=== PATIENT | female | born 1955 | race Caucasian/White ===

== ENCOUNTER → 2016-12-10 | Outpatient (CLI) | payer BC ==
--- NOTE | 2016-12-12 09:05 | MM ---
Reason for exam: screening (asymptomatic). Last mammogram was performed 13 years and 3 months ago. History: Patient is postmenopausal. Physical Findings: A clinical breast exam by your physician is recommended on an annual basis and results should be correlated with mammographic findings. MG Screening Mammo w CAD Bilateral CC and MLO view(s) were taken. Prior study comparison: December 07, 2015, mammogram, performed at [facility]. There are scattered fibroglandular densities. No significant changes when compared with prior studies. ASSESSMENT: Negative, BI-RAD 1 RECOMMENDATION: Routine screening mammogram of both breasts in 1 year.
== END | disposition home or self-care (01) ==
LOC: RADMAMWWP 09:36
PROVIDERS: ATTEND Family Medicine
DX: Z12.31 Encounter for screening mammogram for malignant neoplasm of breast (principal)

== ENCOUNTER → 2016-12-14 | Outpatient (CLI) | payer BC ==
[2016-12-14 11:59] LABS: Basophils # (A) 0.1 k/uL (0-0.2); Basophils % (A) 1 %; CH 30.1; Eosinophils # (A) 0.1 k/uL (0-0.7); Eosinophils % (A) 2 %; HCT 37.5 % (34.0-46.0); HDW 2.58; Luc # (Auto) 0.14; Luc % (Auto) 2; Lymphocytes # (A) 2.2 k/uL (1.0-4.8); Lymphocytes % (A) 36 %; MCH 30.9 pg (25.0-35.0); MCHC 34.8 g/dL (31.0-37.0); MCV 88.7 fL (80.0-100.0); Mean Platelet Volume 7.7; Monocytes # (A) 0.4 k/uL (0-1.0); Monocytes % (A) 6 %; Neutrophils # (A) 3.3 k/uL (1.3-7.7); Neutrophils % (A) 53 %; RBC 4.23 m/uL (3.80-5.40); RDW 12.5 % (11.5-15.5); WBC 6.2 k/uL (3.8-10.6); WBC (Perox) 6.62
== END ==
LOC: LABWHC1 11:40
PROVIDERS: ATTEND Family Medicine
DX: I10 Essential (primary) hypertension (principal); E78.5 Hyperlipidemia, unspecified
CPT/HCPCS: 36415; 85025

== ENCOUNTER → 2018-01-14 | Outpatient (CLI) | payer BC ==
--- NOTE | 2018-01-15 13:47 | MM ---
Reason for exam: screening (asymptomatic). Last mammogram was performed 1 year and 1 month ago. History: Patient is postmenopausal. Physical Findings: A clinical breast exam by your physician is recommended on an annual basis and results should be correlated with mammographic findings. MG 3D Screening Mammo W/Cad Bilateral CC and MLO view(s) were taken. Prior study comparison: December 10, 2016, bilateral MG screening mammo w CAD. December 07, 2015, mammogram, performed at [facility]. There are scattered fibroglandular densities. Developing 15mm asymmetry left breast middle depth MLO view (63/78) medial aspect CC view (53/73). ASSESSMENT: Incomplete: need additional imaging evaluation, BI-RAD 0 RECOMMENDATION: Special view mammogram of the left breast. If lesion persists on supplemental views, image directed ultrasound is recommended. [facility] will attempt to contact patient to return for supplemental views and ultrasound if indicated.
== END | disposition home or self-care (01) ==
LOC: RADMAMWWP 10:39
PROVIDERS: ATTEND Family Medicine
DX: Z12.31 Encounter for screening mammogram for malignant neoplasm of breast (principal)
CPT/HCPCS: 77063; 77067

== ENCOUNTER → 2018-01-26 | Outpatient (CLI) | payer BC ==
--- NOTE | 2018-01-27 07:52 | MM ---
Reason for exam: additional evaluation requested from abnormal screening. Last mammogram was performed less than 1 month ago. History: Patient is postmenopausal. Physical Findings: Nurse did not find any significant physical abnormalities on exam. MG Work Up Mamm w CAD LT Spot compression CC, spot compression MLO, and CCRL view(s) were taken of the left breast. Prior study comparison: January 14, 2018, bilateral MG 3d screening mammo w/cad. December 10, 2016, bilateral MG screening mammo w CAD. Nodular density persists 8cm from nipple at 9 o'clock. These results were verbally communicated with the patient and result sheet given to the patient on 01/26/18. ASSESSMENT: Incomplete: need additional imaging evaluation, BI-RAD 0 RECOMMENDATION: Ultrasound of the left breast.
--- NOTE | 2018-01-27 07:53 | USB ---
Reason for exam: additional evaluation requested from abnormal screening. History: Patient is postmenopausal. US Breast Workup Limited LT Left limited breast ultrasound including focal area of concern, retroareolar and axilla demonstrates a 5 x 4 x 6mm oval, mixed, hypoechoic lesion at 9 o'clock and a 13 x 5 x 9mm lobular, mixed, hypoechoic lesion at 9 o'clock. These results were verbally communicated with the patient and result sheet given to the patient on 01/26/18. ASSESSMENT: Probably benign, BI-RAD 3 RECOMMENDATION: Ultrasound of the left breast in 6 months.
== END | disposition home or self-care (01) ==
LOC: RADMAMWWP 14:49
PROVIDERS: ATTEND Family Medicine
DX: R92.8 Other abnormal and inconclusive findings on diagnostic imaging of breast (principal)
CPT/HCPCS: 77065

== ENCOUNTER → 2018-09-02 | Outpatient (CLI) | payer BC ==
[2018-09-02 12:34] LABS: Basophils # (A) 0.1 k/uL (0-0.2); Basophils % (A) 1 %; Eosinophils # (A) 0.2 k/uL (0-0.7); Eosinophils % (A) 2 %; HCT 40.5 % (34.0-46.0); HGB 13.5 gm/dL (11.4-16.0); Lymphocytes # (A) 2.7 k/uL (1.0-4.8); Lymphocytes % (A) 34 %; MCH 30.4 pg (25.0-35.0); MCHC 33.2 g/dL (31.0-37.0); MCV 91.6 fL (80.0-100.0); Mean Platelet Volume 7.2; Monocytes # (A) 0.3 k/uL (0-1.0); Monocytes % (A) 4 %; Neutrophils # (A) 4.5 k/uL (1.3-7.7); Neutrophils % (A) 58 %; Platelet Count 212 k/uL (150-450); RBC 4.42 m/uL (3.80-5.40); RDW 12.7 % (11.5-15.5); WBC 7.9 k/uL (3.8-10.6)
[2018-09-02 20:03] LABS: Albumin 4.4 g/dL (3.80-4.90); Albumin/Globulin Ratio 1.63 (1.60-3.17); Anion Gap 10.1 mmol/L (4.00-12.00); Calcium 9.3 mg/dL (8.7-10.3); Carbon Dioxide 21.9 mmol/L (21.6-31.8); Globulin 2.7 g/dL (1.6-3.3); LDL Cholesterol,Calculated 75.4 mg/dL (0.0-131.0); Potassium 4.2 mmol/L (3.5-5.5); Total Bilirubin 0.7 mg/dL (0.3-1.2); Total Protein 7.1 g/dL (6.2-8.2); VLDL Calculation 28.6 mg/dL (5.00-40.00)
== END | disposition home or self-care (01) ==
LOC: LABWHC1 12:02
PROVIDERS: ATTEND Family Medicine
DX: E78.5 Hyperlipidemia, unspecified (principal); I10 Essential (primary) hypertension; D64.9 Anemia, unspecified
CPT/HCPCS: 36415; 80053; 80061; 85025

== ENCOUNTER 2021-09-07 14:40 | Observation (INO) | payer BC, MEDICARE ==
--- NOTE | 2021-09-07 15:35 | CT ---
EXAMINATION TYPE: CT abdomen pelvis wo con DATE OF EXAM: 09/07/2021 COMPARISON: None HISTORY: Right sided abdominal pain and flank pain. CT DLP: 602.8 mGycm Automated exposure control for dose reduction was used. TECHNIQUE: Helical acquisition of images was performed from the lung bases through the pelvis. FINDINGS: The lung bases are clear and there is no infiltrate or effusion.. There are multiple large gallstones and there is pericholecystic fluid and mild gallbladder distentio n. The findings suggest acute cholecystitis. There is no organomegaly involving the liver, pancreas, spleen or adrenal glands. There is mild prominence of the renal collecting systems bilaterally but no definite hydronephrosis. There are no renal or ureteral calcifications. 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 Caliber the abdominal aorta is normal and there is no retroperitoneal adenopathy or hemorrhage. The bowel loops are normal in caliber and there is no evidence of obstruction. There is no free intra peritoneal air or fluid. There are no inflammatory changes within the mesentery. There is no pelvic mass or adenopathy. 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 There is a left hip prosthesis otherwise the osseous structures are intact. IMPRESSION: Cholelithiasis with pericholecystic fluid and mild gallbladder distention. The findings suggest prese nce of acute cholecystitis. Clinical correlation is recommended.
[2021-09-07] MEDS ORDERED: SODIUM CHLORIDE 0.9% 1,000 ML IV STA (17:32)
[2021-09-07] MEDS ORDERED: KETOROLAC 15 MG/ML 1 ML VIAL IVP STA (17:42)
[2021-09-07] MEDS ORDERED: PIPERACILLIN-TAZOBACTAM 3.375 GM in SODIUM CHLORIDE 0.9% 100 ML IVPB STA (17:47)
--- NOTE | 2021-09-07 17:47 | ED ---
General Adult HPI - General Chief complaint: Abdominal Pain Stated complaint: Abd Pain/Sick Time Seen by Provider: 09/07/21 17:31 Source: patient Mode of arrival: ambulatory Limitations: no limitations - History of Present Illness Initial comments: Dictation was produced using [employer] dictation software. please excuse any grammatical, word or spelling errors. Chief Complaint: 66-year-old feel presents emergency Department with right upper quadrant abdominal pain History of Present Illness: 66-year-old female she denies any significant past medical history. She states that she has a history of abdominal surgery. She woke up today and started having severe right-sided upper quadrant abdominal pain. The last several months she's had episodes of colicky right upper quadrant abdominal pain. She has not been formally diagnosed with any gallbladder disease. She does have fever and chills. she does have nausea. The ROS documented in this emergency department record has been reviewed and confirmed by me. Those systems with pertinent positive or negative responses have been documented in the HPI. All other systems are other negative and/or noncontributory. PHYSICAL EXAM: General Impression: Alert and oriented x3, not in acute distress HEENT: Normocephalic atraumatic, extra-ocular movements intact, pupils equal and reactive to light bilaterally, mucous membranes moist. Cardiovascular: Heart regular rate and rhythm Chest: Able to complete full sentences, no retractions, no tachypnea Abdomen: abdomen soft, tenderness to the right abdomen, positive Lester sign, non-distended, no organomegaly Musculoskeletal: Pulses present and equal in all extremities, no peripheral edema Motor: no focal deficits noted Neurological: CN II-XII grossly intact, no focal motor or sensory deficits noted Skin: Intact with no visualized rashes Psych: Normal affect and mood ED course: 66-year-old female presents to the emergency department for right upper quadrant abdominal pain and GI symptoms acutely since this morning. Tr [facility] nurse ordered computed tomography scan of the abdomen and pelvis that showed findings suspicious for acute cholecystitis. Clinically her symptoms suggest acute cholecystitis. Vital signs upon arrival are within acceptable limits. Laboratory evaluation obtained. Leukocytosis of 15.7. Rest of CBC metabolic panel is unremarkable. Case discussed with on-call surgeon Dr. Kim who is agreeable with admission. He request the patient be started antibiotics and be made nothing by mouth. Patient has multiple antibiotic ALLERGIES however out of her reactions are listed as anaphylaxis and just as rash. Patient be monitored for possible ALLERGIC reaction. EKG interpretation: Ventricular rate 66, sinus rhythm,. Interval 186, QS 93, QTC 427. No NJ prolongation, no QTC prolongation, no ST or T-wave changes noted. Overall, this EKG is unremarkable - Related Data Home Medications Medication Instructions Recorded Confirmed Atorvastatin [Lipitor] 40 mg PO HS 09/07/21 09/07/21 lisinopriL 30 mg PO HS 09/07/21 09/07/21 Allergies Allergy/AdvReac Type Severity Reaction Status Date / Time amoxicillin Allergy Rash/Hives Verified 09/07/21 18:33 azithromycin Allergy Rash/Hives Verified 09/07/21 18:33 cefpodoxime [From Vantin] Allergy Rash/Hives Verified 09/07/21 18:33 clarithromycin [From Biaxin] Allergy Rash/Hives Verified 09/07/21 18:33 levofloxacin [From Levaquin] Allergy Rash/Hives Verified 09/07/21 18:33 moxifloxacin [From Avelox] Allergy Rash/Hives Verified 09/07/21 18:33 Penicillins Allergy Rash/Hives Verified 09/07/21 18:33 on entire body meperidine [From Demerol] AdvReac Nausea & Verified 09/07/21 18:33 Vomiting & Diarrhea Review of Systems ROS Statement: Those systems with pertinent positive or pertinent negative responses have been documented in the HPI. ROS Other: All systems not noted in ROS Statement are negative. Past Medical History Past Medical History: No Reported History History of Any Multi-Drug Resistant Organisms: None Reported Past Surgical History: Joint Replacement, Orthopedic Surgery Past Psychological History: No Psychological Hx Reported Smoking Status: Never smoker Past Alcohol Use History: None Reported Past Drug Use History: None Reported General Exam Limitations: no limitations Course Vital Signs 09/07/21 09/07/21 15:04 18:20 Temperature 99.0 F Pulse Rate 82 65 Respiratory 18 18 Rate Blood Pressure 199/78 173/72 O2 Sat by Pulse 98 96 Oximetry Medical Decision Making - Lab Data Result diagrams: 09/07/21 18:19 09/07/21 18:19 Disposition Clinical Impression: Acute cholecystitis Disposition: ADMITTED IP TO THIS HOSP Condition: Serious Decision Time: 18:49
[2021-09-07] MEDS ORDERED: NALOXONE 0.4 MG/ML 1 ML VIAL IV PRN (17:56)
[2021-09-07] MEDS ORDERED: ACETAMINOPHEN TAB 325 MG TAB PO PRN (17:56)
[2021-09-07] MEDS ORDERED: metroNIDAZOLE-NS PMX 500 MG in SALINE 1 100ML.BAG IVPB STA (18:14)
[2021-09-07] MEDS ORDERED: cefTRIAXone IN SWFI 1,000 MG/10 ML SYRINGE IVP STA ×2 (18:14→18:41)
[2021-09-07 18:29] LABS: Basophils # (A) 0.1 k/uL (0-0.2); Basophils % (A) 1 %; Eosinophils % (A) 0 %; HCT 41.8 % (34.0-46.0); HGB 13.9 gm/dL (11.4-16.0); Lymphocytes % (A) 13 %; MCH 30.5 pg (25.0-35.0); MCHC 33.3 g/dL (31.0-37.0); MCV 91.5 fL (80.0-100.0); Mean Platelet Volume 7.9; Monocytes % (A) 6 %; Neutrophils # (A) 12.3 k/uL (1.3-7.7); Neutrophils % (A) 79 %; Platelet Count 223 k/uL (150-450); RBC 4.57 m/uL (3.80-5.40); RDW 12.6 % (11.5-15.5); WBC 15.7 k/uL (3.8-10.6)
[2021-09-07 18:40] LABS: ALT 22 U/L (4-34); AST 27 U/L (14-36); African American GFR (CKD) >90 (>60 ml/min/1.73 sqM); Albumin 4.6 g/dL (3.5-5.0); Alkaline Phosphatase 92 U/L (38-126); Anion Gap 10 mmol/L; Bilirubin, Delta 0.1 mg/dL (0.0-0.2); Bilirubin,Unconjugated 0.9 mg/dL (0.0-1.1); Blood Urea Nitrogen 10 mg/dL (7-17); Calcium 9.4 mg/dL (8.4-10.2); Carbon Dioxide 28 mmol/L (22-30); Chloride 104 mmol/L (98-107); Glucose 118 mg/dL (74-99); Lipase 80 U/L (23-300); Non-African American GFR(CKD) >90 (>60 ml/min/1.73 sqM); Potassium 3.1 mmol/L (3.5-5.1); Sodium 142 mmol/L (137-145); Total Protein 7.5 g/dL (6.3-8.2)
[2021-09-07] MEDS ORDERED: ONDANSETRON 4 MG/2 ML VIAL IVP STA (19:32)
[2021-09-07] MEDS: SODIUM CHLORIDE 0.9% 1,000 ML IV SCH (19:39)
[2021-09-08] MEDS: KETOROLAC 15 MG/ML 1 ML VIAL IVP PRN ×2 (03:29→11:10)
[2021-09-08] MEDS: SODIUM CHLORIDE 0.9% 1,000 ML IV SCH ×2 (06:07→07:21)
[2021-09-08] MEDS ORDERED: HYDROmorphone 1 MG/ML 1 ML SYRINGE IVP PRN (11:13)
--- NOTE | 2021-09-08 12:27 | P.GSHP ---
History of Present Illness H&P Date: 09/08/21 Chief Complaint: Right upper quadrant pain This a 66-year-old female who was admitted hospital with right quadrant pain. Patient was worked up emergency room found evidence of cholelithiasis cholecystitis. Past Medical History Past Medical History: No Reported History History of Any Multi-Drug Resistant Organisms: None Reported Past Surgical History: Joint Replacement, Orthopedic Surgery Past Psychological History: No Psychological Hx Reported Smoking Status: Unknown if ever smoked Past Alcohol Use History: None Reported Past Drug Use History: None Reported Medications and Allergies Home Medications Medication Instructions Recorded Confirmed Type Atorvastatin [Lipitor] 40 mg PO HS 09/07/21 09/07/21 History lisinopriL 30 mg PO HS 09/07/21 09/07/21 History Allergies Allergy/AdvReac Type Severity Reaction Status Date / Time amoxicillin Allergy Rash/Hives Verified 09/07/21 18:33 azithromycin Allergy Rash/Hives Verified 09/07/21 18:33 cefpodoxime [From Vantin] Allergy Rash/Hives Verified 09/07/21 18:33 clarithromycin [From Biaxin] Allergy Rash/Hives Verified 09/07/21 18:33 levofloxacin [From Levaquin] Allergy Rash/Hives Verified 09/07/21 18:33 moxifloxacin [From Avelox] Allergy Rash/Hives Verified 09/07/21 18:33 Penicillins Allergy Rash/Hives Verified 09/07/21 18:33 on entire body meperidine [From Demerol] AdvReac Nausea & Verified 09/07/21 18:33 Vomiting & Diarrhea Surgical - Exam Vital Signs Temp Pulse Resp BP Pulse Ox 99.0 F 82 18 199/78 98 09/07/21 15:04 09/07/21 15:04 09/07/21 15:04 09/07/21 15:04 09/07/21 15:04 - General well developed, well nourished, no distress - Eyes PERRL - ENT normal pinna - Neck no masses - Respiratory normal expansion - Cardiovascular Rhythm: regular - Abdomen Abdomen: soft, non tender Results - Labs 09/07/21 18:19 09/07/21 18:19 Abnormal Lab Results - Last 24 Hours (Table) 09/07/21 09/07/21 Range/Units 18:19 18:19 WBC 15.7 H (3.8-10.6) k/uL Neutrophils # 12.3 H (1.3-7.7) k/uL Potassium 3.1 L (3.5-5.1) mmol/L Glucose 118 H (74-99) mg/dL Diabetes panel 09/07/21 Range/Units 18:19 Sodium 142 (137-145) mmol/L Potassium 3.1 L (3.5-5.1) mmol/L Chloride 104 (98-107) mmol/L Carbon Dioxide 28 (22-30) mmol/L BUN 10 (7-17) mg/dL Creatinine 0.69 (0.52-1.04) mg/dL Glucose 118 H (74-99) mg/dL Calcium 9.4 (8.4-10.2) mg/dL AST 27 (14-36) U/L ALT 22 (4-34) U/L Alkaline Phosphatase 92 (38-126) U/L Total Protein 7.5 (6.3-8.2) g/dL Albumin 4.6 (3.5-5.0) g/dL Calcium panel 09/07/21 Range/Units 18:19 Calcium 9.4 (8.4-10.2) mg/dL Albumin 4.6 (3.5-5.0) g/dL Pituitary panel 09/07/21 Range/Units 18:19 Sodium 142 (137-145) mmol/L Potassium 3.1 L (3.5-5.1) mmol/L Chloride 104 (98-107) mmol/L Carbon Dioxide 28 (22-30) mmol/L BUN 10 (7-17) mg/dL Creatinine 0.69 (0.52-1.04) mg/dL Glucose 118 H (74-99) mg/dL Calcium 9.4 (8.4-10.2) mg/dL Adrenal panel 09/07/21 Range/Units 18:19 Sodium 142 (137-145) mmol/L Potassium 3.1 L (3.5-5.1) mmol/L Chloride 104 (98-107) mmol/L Carbon Dioxide 28 (22-30) mmol/L BUN 10 (7-17) mg/dL Creatinine 0.69 (0.52-1.04) mg/dL Glucose 118 H (74-99) mg/dL Calcium 9.4 (8.4-10.2) mg/dL Total Bilirubin 1.0 (0.2-1.3) mg/dL AST 27 (14-36) U/L ALT 22 (4-34) U/L Alkaline Phosphatase 92 (38-126) U/L Total Protein 7.5 (6.3-8.2) g/dL Albumin 4.6 (3.5-5.0) g/dL Assessment and Plan Assessment: Cholecystitis, cholelithiasis. Patient will be scheduled for laparoscopically cholecystectomy in the a.m.
[2021-09-08] MEDS ORDERED: ONDANSETRON 4 MG/2 ML VIAL IVP PRN (18:29)
[2021-09-09] MEDS: SODIUM CHLORIDE 0.9% 1,000 ML IV SCH ×4 (05:28→21:11)
[2021-09-09] MEDS ORDERED: KETOROLAC 15 MG/ML 1 ML VIAL ONE (08:06)
[2021-09-09] MEDS ORDERED: diphenhydrAMINE 50 MG/ML 1 ML VIAL ONE (08:06)
[2021-09-09] MEDS ORDERED: ONDANSETRON 4 MG/2 ML VIAL ONE (08:06)
[2021-09-09] MEDS ORDERED: LIDOCAINE 4% LTA KIT (4 ML) TOPICAL ONE (08:06)
[2021-09-09] MEDS ORDERED: PROPOFOL 10 MG/ML 20 ML VIAL IV ONE (08:06)
[2021-09-09] MEDS ORDERED: SUCCINYLCHOLINE CHLORIDE 100 MG/5 ML SYR IV ONE (08:06)
[2021-09-09] MEDS ORDERED: LIDOCAINE 2% INJ 20 MG/ML (2 ML VIAL) ONE (08:06)
[2021-09-09] MEDS ORDERED: fentaNYL (PF) 50 MCG/ML 2 ML AMP ONE (08:06)
[2021-09-09] MEDS ORDERED: DEXAMETHASONE SOD PHOSPHATE 4 MG/ML 1 ML VIAL ONE (08:06)
[2021-09-09] MEDS ORDERED: MIDAZOLAM 2 MG/2 ML VIAL ONE (08:06)
[2021-09-09] MEDS ORDERED: IV FLUID CONTINUATION 1,000 ML IV ONE (08:08)
[2021-09-09] MEDS ORDERED: SODIUM CHLORIDE 0.9% 100 ML with CLINDAMYCIN 600 MG/50 ML-D5W 600 MG IV ONE ×2 (08:25)
[2021-09-09] MEDS ORDERED: BUPIVACAINE (PF) 0.25% 30 ML VIAL SQ ONE (08:26)
[2021-09-09] MEDS ORDERED: LACTATED RINGERS 1,000 ML IV ONE (08:31)
--- NOTE | 2021-09-09 09:03 | P.OP ---
Date of Procedure: 09/09/21 Preoperative Diagnosis: Cholecystitis Postoperative Diagnosis: Cholecystitis Procedure(s) Performed: Laparoscopic cholecystectomy Anesthesia: BROCK Surgeon: Obinna Kim Estimated Blood Loss (ml): 5 Pathology: other (Gallbladder) Condition: stable Disposition: PACU Operative Findings: Large gallstone impacted in the neck of gallbladder Description of Procedure: The patient was placed on the operating table. The patient received a general endotracheal tube anesthesia. The patients abdomen was prepped and draped in the usual sterile fashion. Through an infraumbilical stab incision, the fascia of the anterior abdominal wall was grasped with a pair of Kochers and then the Veress needle was placed in the peritoneal cavity. Position of the Veress needle was confirmed with positive drop test. The abdomen was then insufflated. After adequate insufflation, the 10 mm trocar was placed in the peritoneal cavity. Following this the laparoscope was placed in the peritoneal cavity. The patient was placed in the head-up, right side up position and then a 5 mm trocar was placed in the right lateral and right subcostal position under direct visualization. A 8 mm trocar was placed in the epigastric position. The gallbladder was grasped in the fundus and infundibulum. Traction on the gallbladder was placed in the lateral and the cephalad positions. The triangle of Calot was visualized.. There was a gallstone impacted at the neck of the gallbladder. For safety concerns decided not to dissect out the cystic duct to the plantar changes. A suture was placed around the distal gallbladder neck. The suture was then ligated with the timeout device. The gallbladder neck was then opened using Harmonic scissors. The gallstone was retrieved. . A PDS Endoloop was then placed throughout the gallbladder neck stump. The cystic artery divided and sealed with the Harmonic scissors. The gallbladder was then removed from the liver bed using Harmonic scissors. The gallbladder was then extracted through the epigastric port site. Operative field was checked for any bleeding spots and Harmonic scissors was used to coagulate the liver bed. The abdomen was irrigated. The trocars were removed. The skin was closed using interrupted 3-0 Vicryl suture. Dermabond dressing were applied. The patient tolerated the procedure well.
[2021-09-09] MEDS ORDERED: SODIUM CHLORIDE 0.9% 1,000 ML IV ONE (10:24)
[2021-09-09] MEDS: KETOROLAC 15 MG/ML 1 ML VIAL IVP PRN ×2 (13:22→21:11)
[2021-09-10] MEDS: KETOROLAC 15 MG/ML 1 ML VIAL IVP PRN (06:08)
[2021-09-10] MEDS: SODIUM CHLORIDE 0.9% 1,000 ML IV SCH (07:32)
[2021-09-10] MEDS ORDERED: ENOXAPARIN 40 MG/0.4 ML SYRINGE SQ SCH (09:00)
[2021-09-10 09:01] LABS: African American GFR (CKD) 77 (>60 ml/min/1.73 sqM); Anion Gap 10 mmol/L; Blood Urea Nitrogen 16 mg/dL (7-17); Calcium 8.2 mg/dL (8.4-10.2); Carbon Dioxide 21 mmol/L (22-30); Chloride 111 mmol/L (98-107); Glucose 115 mg/dL (74-99); Non-African American GFR(CKD) 67 (>60 ml/min/1.73 sqM); Potassium 3.4 mmol/L (3.5-5.1); Sodium 142 mmol/L (137-145)
[2021-09-10 09:17] LABS: Basophils % (A) 0 %; Eosinophils % (A) 0 %; HCT 33.1 % (34.0-46.0); HGB 10.8 gm/dL (11.4-16.0); Lymphocytes # (A) 1.6 k/uL (1.0-4.8); Lymphocytes % (A) 16 %; MCH 31.3 pg (25.0-35.0); MCHC 32.7 g/dL (31.0-37.0); Mean Platelet Volume 9.3; Monocytes # (A) 0.5 k/uL (0-1.0); Monocytes % (A) 5 %; Neutrophils # (A) 7.5 k/uL (1.3-7.7); Neutrophils % (A) 78 %; Platelet Count 228 k/uL (150-450); RBC 3.45 m/uL (3.80-5.40); WBC 9.7 k/uL (3.8-10.6)
[2021-09-10] MEDS ORDERED: POTASSIUM CHLORIDE ER 20 MEQ TAB.ER PO STA (11:03)
[2021-09-10] MEDS ORDERED: HYDROcodone/APAP 5-325MG 1 EACH TAB PO PRN (11:23)
--- NOTE | 2021-09-10 11:34 | P.CONS ---
History of Present Illness - Reason for Consult Hypokalemia - History of Present Illness She is a pleasant 66-year-old female admitted for right upper quadrant pain and patient is found to have cholelithiasis and cholecystitis patient underwent cholecystectomy patient the is still having some pain and some pain when she takes a deep breath on the right side. Patient is tolerating liquid diet at this time patient didn't pass gas yet didn't move her bowel yet but patient is hoping to go home today. Patient is on IV normal saline leading to hyperchloremia and hypokalemia normal saline with his continued progress and replaced. Patient does have history of hypertension and take his Toprol which presumed patient blood pressure is bit elevated at this time. REVIEW OF SYSTEMS: CONSTITUTIONAL: No fever, no malaise, no fatigue. HEENT: No recent visual problems or hearing problems. Denied any sore throat. CARDIOVASCULAR: No chest pain, orthopnea, PND, no palpitations, no syncope. PULMONARY: No shortness of breath, no cough, no hemoptysis. GASTROINTESTINAL: No diarrhea, no nausea, no vomiting. NEUROLOGICAL: No headaches, no weakness, no numbness. HEMATOLOGICAL: Denies any bleeding or petechiae. GENITOURINARY: Denies any burning micturition, frequency, or urgency. MUSCULOSKELETAL/RHEUMATOLOGICAL: Denies any joint pain, swelling, or any muscle pain. ENDOCRINE: Denies any polyuria or polydipsia. The rest of the 14-point review of systems is negative. PHYSICAL EXAMINATION: GENERAL: The patient is alert and oriented x3, not in any acute distress. Well developed, well nourished. HEENT: Pupils are round and equally reacting to light. EOMI. No scleral icterus. No conjunctival pallor. Normocephalic, atraumatic. No pharyngeal erythema. No thyromegaly. CARDIOVASCULAR: S1 and S2 present. No murmurs, rubs, or gallops. PULMONARY: Chest is clear to auscultation, no wheezing or crackles. ABDOMEN: Soft, nontender, nondistended, normoactive bowel sounds. No palpable organomegaly. MUSCULOSKELETAL: No joint swelling or deformity. EXTREMITIES: No cyanosis, clubbing, or pedal edema. NEUROLOGICAL: Gross neurological examination did not reveal any focal deficits. SKIN: No rashes. Assessment and plan -Hypokalemia secondary to IV fluids aggressively replace -Hypertension: Patient doesn't appear to have any perioperative hypotension will be resumed on antidepressant medications -Cholecystitis: Status post cholecystectomy, antibiotics as per primary service -Hyperlipidemia resume Lipitor DVT prophylaxis: As per primary service Past Medical History Past Medical History: No Reported History History of Any Multi-Drug Resistant Organisms: None Reported Past Surgical History: Joint Replacement, Orthopedic Surgery Past Psychological History: No Psychological Hx Reported Smoking Status: Unknown if ever smoked Past Alcohol Use History: None Reported Past Drug Use History: None Reported Medications and Allergies Home Medications Medication Instructions Recorded Confirmed Type Atorvastatin [Lipitor] 40 mg PO HS 09/07/21 09/07/21 History lisinopriL 30 mg PO HS 09/07/21 09/07/21 History Allergies Allergy/AdvReac Type Severity Reaction Status Date / Time amoxicillin Allergy Rash/Hives Verified 09/07/21 18:33 azithromycin Allergy Rash/Hives Verified 09/07/21 18:33 cefpodoxime [From Vantin] Allergy Rash/Hives Verified 09/07/21 18:33 clarithromycin [From Biaxin] Allergy Rash/Hives Verified 09/07/21 18:33 levofloxacin [From Levaquin] Allergy Rash/Hives Verified 09/07/21 18:33 moxifloxacin [From Avelox] Allergy Rash/Hives Verified 09/07/21 18:33 Penicillins Allergy Rash/Hives Verified 09/07/21 18:33 on entire body meperidine [From Demerol] AdvReac Nausea & Verified 09/07/21 18:33 Vomiting & Diarrhea Physical Exam Vitals: Vital Signs Temp Pulse Resp BP Pulse Ox 09/10/21 08:00 98.5 F 60 14 156/70 90 L 09/10/21 02:00 97.7 F 68 20 154/69 91 L 09/09/21 20:00 98.1 F 54 L 16 154/76 93 L 09/09/21 16:09 62 167/82 92 L 09/09/21 16:08 62 166/82 93 L Intake and Output 09/09/21 09/10/21 09/10/21 22:59 06:59 14:59 Intake Total 480 1560 Balance 480 1560 Intake: Oral 480 1560 Other: # Voids 1 2 Results CBC & Chem 7: 09/10/21 08:03 09/10/21 08:03 Labs: Abnormal Lab Results - Last 24 Hours (Table) 09/10/21 09/10/21 Range/Units 08:03 08:03 RBC 3.45 L (3.80-5.40) m/uL Hgb 10.8 L D (11.4-16.0) gm/dL Hct 33.1 L (34.0-46.0) % Potassium 3.4 L (3.5-5.1) mmol/L Chloride 111 H (98-107) mmol/L Carbon Dioxide 21 L (22-30) mmol/L Glucose 115 H (74-99) mg/dL Calcium 8.2 L (8.4-10.2) mg/dL Microbiology - Last 24 Hours (Table) 09/07/21 18:20 Blood Culture - Preliminary Blood No Growth after 48 hours 09/07/21 18:20 Blood Culture - Preliminary Blood No Growth after 48 hours
[2021-09-10] MEDS ORDERED: traMADol 50 MG TAB PO PRN (11:42)
--- NOTE | 2021-09-10 14:39 | P.DS ---
Providers Date of admission: 09/10/21 08:03 Expected date of discharge: 09/10/21 Attending physician: Obinna Kim Consults: 09/08/21 12:27 Consult Physician Routine Consulting Provider: Twan Gomez Consult Reason/Comments: Medical management Do you want consulting provider notified?: Yes Primary care physician: Physician Nonstaff Hospital Course: Discharge diagnosis 1. Cholecystitis status post laparoscopic cholecystectomy 2. Atelectasis Hospital course This 66-year-old female presented to the hospital for right upper quadrant abdominal pain. She's found have evidence of cholelithiasis and cholecystitis. Patient is status post laparoscopic cholecystectomy. Patient tolerated surgery well. Pain is controlled. She is tolerating diet. She is up and ambulating. She did have a low-grade temp last night of 100 likely secondary to atelectasis. Her temp has returned to normal. Incision sites clean dry and intact. Patient is stable for discharge. Please refer to chart for any further details. Physician Benefit Specialist note has been reviewed by physician. Signing provider agrees with the documented findings, assessment, and plan of care. Patient Condition at Discharge: Stable Plan - Discharge Summary New Discharge Prescriptions: New traMADol HCL [Ultram] 50 mg PO Q6HR PRN 3 Days #12 tab PRN Reason: Pain Continue Atorvastatin [Lipitor] 40 mg PO HS lisinopriL 30 mg PO HS Discharge Medication List Atorvastatin [Lipitor] 40 mg PO HS 09/07/21 [History] lisinopriL 30 mg PO HS 09/07/21 [History] traMADol HCL [Ultram] 50 mg PO Q6HR PRN 3 Days #12 tab 09/10/21 [Rx] Follow up Appointment(s)/Referral(s): Nonstaff,Physician [Primary Care Provider] - 1-2 days Obinna Kim MD [STAFF PHYSICIAN] - 1 Week Patient Instructions/Handouts: *Surgery [facility] - Laparoscopic Cholecystectomy Discharge Instructions, Low Fat Diet (DC) Activity/Diet/Wound Care/Special Instructions: No driving while taking ultram No lifting over 10 pounds Shower daily. No soaking or tub baths for 2 weeks Very light activity until you are reevaluated at your follow up appointment with your surgeon Discharge Disposition: HOME SELF-CARE
[2021-09-10 15:29] VITALS: BP 180/76; PULSE 74; RESP 18; TEMP 99.6
[2021-09-10] MEDS ORDERED: lisinopriL 10 MG TAB PO SCH (21:00)
[2021-09-10] MEDS ORDERED: lisinopriL 20 MG TAB PO SCH (21:00)
[2021-09-10] MEDS ORDERED: ATORVASTATIN 40 MG TAB PO SCH (21:00)
== END 2021-09-10 15:46 | disposition home or self-care (01) ==
LOC: EC 14:40 → 4SSUR 17:57 → INTOOBSV 09-10 08:03 → OBSVTOIN 09-10 08:03 → UNDODISIN 09-10 15:46
PROVIDERS: ADMIT Surgery; ATTEND Surgery
PROC: 0FT44ZZ Resection of Gallbladder, Percutaneous Endoscopic Approach (ICD-10-PCS; principal; 2021-09-10)
DX: K80.00 Calculus of gallbladder with acute cholecystitis without obstruction (principal); E87.6 Hypokalemia; R50.82 Postprocedural fever; E87.8 Other disorders of electrolyte and fluid balance, not elsewhere classified; I10 Essential (primary) hypertension; E78.5 Hyperlipidemia, unspecified; Z79.899 Other long term (current) drug therapy; Z88.0 Allergy status to penicillin; Z88.1 Allergy status to other antibiotic agents; Z96.60 Presence of unspecified orthopedic joint implant; Z98.890 Other specified postprocedural states
CPT/HCPCS: 96376; 96361; 96365; 96375; 99285; 93005; 88304; 80053; 80048; 82248; 83690; 85025 ×2; 87040; 74176; 47562; G0378 ×4; J2250; J1200; J1100; J2405 ×3; J1650; J0696; J3010; J1170; J1885 ×4; J0330; J2704; J2001